=== PATIENT | male | born 1960 | race Caucasian/White ===

== ENCOUNTER 2018-04-01 11:58 | Day surgery (SDC) | payer BC, SELFPAY ==
[2018-04-01] MEDS: Cefazolin 2 GM in 0.9% Normal Saline 100 ML IV (09:15)
--- NOTE | 2018-04-01 12:07 | RAD_ITS ---
STUDY: X-RAY - ABDOMEN/PELVIS REASON FOR EXAM: Male, 57 years old. Kidney stones TECHNIQUE: Two AP supine views of the abdomen and pelvis. COMPARISON: None. FINDINGS: There is an unremarkable bowel gas pattern. There is no demonstrated free abdominal air. 7 mm calculus at the L4 level on the right, may be in the right ureter. 16 mm calculus in the left lower kidney. Pelvic phleboliths. Normal soft tissue structures. Normal visualized osseous structures. RAD/Abdomen Single View IMPRESSION: 7 mm calculus at the L4 level on the right, may be in the right ureter. 16 mm calculus in the left lower kidney. Electronically Signed: Jason Belle MD at 13:32 EST Tel , Service support ,
[2018-04-01 12:30] VITALS: BP 155/76; PULSE 52; RESP 18; TEMP 37.2; O2SAT 97; BMI 31.1
[2018-04-01 16:27] VITALS: BP 155/76; BP 159/92; PULSE 85; RESP 16; TEMP 35.8; O2SAT 100
--- NOTE | 2018-04-01 16:29 | PCM.OPRPT ---
Report of Operation Date of Procedure: 04/01/18 Pre-Operative Diagnosis: Bilateral kidney stones, right ureteral calculi left kidney stone. Post-Operative Diagnosis: Same Surgery/Procedure Performed:: Bilateral extracorporeal shockwave lithotripsy Description of Surgical Findings:: 57-year-old male taken back to the operating room after smooth induction of general anesthesia he was placed supine on the lithotripter table we first located the stone in the mid right ureter and after the stone was put in the F2 focal point of the lithotripter machine we started at rate 60 power then was slowly raised up to 9 kV and then rate was then slowly increased to 90 at the end of 4000 shockwaves a stone did break broken up significantly no stent was left on the right side we then turned attention to the stone in the lower pole the left kidney he had several fragments in the lower pole the left kidney again these were treated with 3000 shockwaves up the power of 7 kV at the end of the treatment cycle the stone was broken up really well decided not to leave a stent on either side patient anesthetic was reversed taken back to PACU in good condition and will see him back in a few weeks with an x-ray. Appeared to be a successful fragmentation of both stones. Type of Anesthesia:: General Drains: none - Admit VTE Documentation VTE Present on Admission: No VTE Mechan Device Prophylaxis: SCD's
[2018-04-01 16:45] VITALS: BP 155/76; BP 168/99; PULSE 62; RESP 16; O2SAT 93
[2018-04-01 17:00] VITALS: BP 155/76; BP 166/90; PULSE 48; RESP 16; O2SAT 94
[2018-04-01 17:15] VITALS: BP 155/76; BP 162/89; PULSE 52; RESP 16; TEMP 35.8; O2SAT 100
[2018-04-01 17:37] VITALS: BP 155/76
== END 2018-04-01 17:53 | disposition home or self-care (01) ==
LOC: SDC 11:59 → AC 12:02
PROVIDERS: Family Provider Family Medicine; PCP Family Medicine; Referring Provider Urology; Visit Provider Urology
PROC: (CPT 50590; principal; 2018-04-01 13:25)
DX: N20.2 Calculus of kidney with calculus of ureter (principal); R31.0 Gross hematuria; H91.90 Unspecified hearing loss, unspecified ear; F17.200 Nicotine dependence, unspecified, uncomplicated
CPT/HCPCS: 50590; 74018; J7120; J2405

== ENCOUNTER → 2018-04-14 09:10 | Outpatient (CLI) | payer BC, SELFPAY ==
[2018-04-01 12:30] VITALS: BMI 31.1
--- NOTE | 2018-04-14 09:21 | RAD_ITS ---
STUDY: X-RAY - ABDOMEN/PELVIS REASON FOR EXAM: Male, 57 years old. History of bilateral kidney stones, surgery last week TECHNIQUE: Two AP supine views of the abdomen and pelvis. COMPARISON: 04/01/2018 FINDINGS: 6 mm calcification projects over the right psoas muscle at the L4 level, similar in position (although less angular) as compared to the prior study. There is an unremarkable bowel gas pattern. There is no demonstrated free abdominal air. A 16 mm left renal calculus evident on the prior study is not clearly identified although there is significant overlying bowel contents. The visualized liver, spleen and kidneys are grossly normal in size and morphology. There are calcified phleboliths in the pelvis. There are diffuse degenerative changes of the visualized lumbar spine. RAD/Abdomen Single View IMPRESSION: 1. Similar suspected right mid ureter calculus (versus vascular phlebolith). 2. Nonvisualization of left renal calculus seen previously but may be obscured by overlying bowel contents. Electronically Signed: Olman River MD at 19:06 EST , Service support ,
== END ==
PROVIDERS: Family Provider Family Medicine; PCP Family Medicine; Referring Provider Urology; Visit Provider Urology
DX: N20.0 Calculus of kidney (principal)
CPT/HCPCS: 74018

== ENCOUNTER → 2018-04-30 07:52 | Outpatient (CLI) | payer BC, SELFPAY ==
[2018-04-01 12:30] VITALS: BMI 31.1
--- NOTE | 2018-04-30 08:10 | RAD_ITS ---
STUDY: X-RAY - ABDOMEN/PELVIS REASON FOR EXAM: Male, 57 years old. Follow-up stones. TECHNIQUE: Two AP supine views of the abdomen and pelvis. COMPARISON: Abdomen, April 14, 2018. FINDINGS: Normal visualized lung bases. There is an unremarkable bowel gas pattern. There is no demonstrated free abdominal air. The visualized liver, spleen and kidneys are grossly normal in size and morphology. No visualized renal calculi. A small rounded calcification overlying the right psoas muscle at the level of L5 is no longer present. There is a 3 small calcifications are aligned in the right pelvis suggesting distal ureteral calculi. These measure 2.5, 2.0 and 1.5 mm in diameter respectively. There is also a vague density in the left pelvis measuring 3 mm in diameter which is not present on the prior study and may represent a distal ureteral calculus. Normal soft tissue structures. RAD/Abdomen Single View IMPRESSION: 1. Linear arrangement of small calcifications in the right pelvis not present on the prior study. Question distal ureteral calculi. 2. A single density in the left pelvis. Question distal ureteral calculus. Electronically Signed: Dinesh Collins DO at 16:56 EST Tel [phone], Service support ,
== END ==
PROVIDERS: Family Provider Family Medicine; PCP Family Medicine; Referring Provider Urology; Visit Provider Urology
DX: N20.0 Calculus of kidney (principal)
CPT/HCPCS: 74018

== ENCOUNTER → 2018-06-01 08:34 | Outpatient (CLI) | payer BC, SELFPAY ==
--- NOTE | 2018-06-01 08:40 | RAD_ITS ---
STUDY: X-RAY - ABDOMEN/PELVIS REASON FOR EXAM: Male, 57 years old. Bilateral kidney stones. TECHNIQUE: Two AP supine views of the abdomen and pelvis. COMPARISON: 04/30/2018. 04/14/2018. FINDINGS: The lung bases are not demonstrated. There is an unremarkable bowel gas pattern. There is no demonstrated free abdominal air. The visualized liver, spleen and kidneys are grossly normal in size and morphology. There are calcified phleboliths in the pelvis. On the last previous exam, an obliquely oriented linear radiolucency of small calcifications is seen overlying the right side of the pelvis, probably representing distal right ureteral calculi. These are not visualized on the current examination. There are multilevel degenerative changes of the visualized lumbar spine. 2 small metallic densities overlying the lateral right midabdomen which are not seen on previous exams. These may represent foreign bodies or may be due to an overlying artifact. RAD/Abdomen Single View IMPRESSION: Nonspecific bowel gas pattern. No urinary calculi are currently identified. Electronically Signed: Wilver Bucio MD at 2:55 EST , Service support ,
== END ==
PROVIDERS: Family Provider Family Medicine; PCP Family Medicine; Referring Provider Urology; Visit Provider Urology
DX: N20.0 Calculus of kidney (principal)
CPT/HCPCS: 74018

== ENCOUNTER 2018-09-02 11:26 | Day surgery (SDC) | payer BC, SELFPAY ==
[2018-09-02 11:45] VITALS: BP 139/81; PULSE 87; RESP 22; TEMP 36.8; O2SAT 91; BMI 30.8
[2018-09-02] MEDS: Cefazolin 2 GM in 0.9% Normal Saline 100 ML IV (14:20)
--- NOTE | 2018-09-02 14:54 | DCINST_ITS ---
Discharge Diet: Light diet - advance as tolerated Discharge Activity: Return to Normal Activity Call your doctor if your incision/area has: Continuous Slow Oozing, Sudden Increased Bleeding, Increased Pain/ Swelling, Increased Redness, Foul Smelling Discharge, Swelling at the incision site Instructions: Treating Kidney Stones: Ureteroscopic Stone Removal, Ureteral Stents Allergies/Adverse Reactions: Allergies No Known Allergies Allergy (Verified 08/31/18 16:05) Medications to take at Discharge Acetaminophen [Tylenol Extra Strength] 500 - 1,000 mg PO Q6H PRN PRN 03/31/18 Ondansetron HCl [Zofran] 4 mg PO PRN PRN 08/31/18 Oxycodone HCl/Acetaminophen [Percocet 5/325] 1 tablet PO Q6H PRN PRN 08/31/18 Tamsulosin HCl [Flomax] 0.4 mg PO DAILY 08/31/18 Primary Care Physician: Robin Paulino DO [Primary Care Provider] - Test Results: Test results from this visit will be discussed in further detail at your follow- up appointment, if applicable. Please Follow Up With: Florian Guzman MD When: please call to make an appointment.
--- NOTE | 2018-09-02 14:58 | PCM.OPRPT ---
Report of Operation Date of Procedure: 09/02/18 Pre-Operative Diagnosis: Right ureteral calculi causing obstruction and hydronephrosis Post-Operative Diagnosis: The same Surgery/Procedure Performed:: Cystoscopy, balloon dilation of the right ureter, right retrograde pyelogram and representation of fluoroscopic images, right ureteroscopy laser lithotripsy of stone and right stent placement Description of Surgical Findings:: 58-year-old male presented to the hospital with severe renal colic he was then seen in the office for follow-up of the stone in the distal right ureter causing obstruction were to proceed with ureteroscopy laser lithotripsy of the stone. Patient was taken back to the operating room at the smooth induction of general anesthesia he was placed in dorsolithotomy position went of the bladder with a 21 [place] rigid cystourethroscope cannulated the right ureteral orifice with a Glidewire advanced the balloon dilator up to the stone balloon dilated the stone with a 10 cm, 12 [place] balloon dilator, once the ureter was balloon dilated then I went in with a flexible ureteroscope and encountered the stone in the distal ureter was a 6 mm very hard stone used a 270 ?m laser fiber perform laser lithotripsy and the stone this energy settings with mostly 1 J and 6 Hz. After the stone was lasered a little tiny pieces that went up to the kidney inspected the upper kidney medical kidney lower kidney no other stone fragments were seen performed a retrograde pyelogram there was a hydronephrosis of the kidney this is x-rays were taken I then advanced a wire, after inspecting the x-ray and the retrograde pyelogram then I put a stent in over a wire on the right side left the string of the stent, drain the bladder patient's anesthetic was reversed and will see him next week for stent removal. Type of Anesthesia:: General Drains: stent - Admit VTE Documentation VTE Present on Admission: No VTE Mechan Device Prophylaxis: SCD's
[2018-09-02 15:01] VITALS: BP 136/82; BP 139/81; PULSE 78; RESP 16; TEMP 36.3; O2SAT 95
[2018-09-02 15:15] VITALS: BP 139/81; BP 143/85; PULSE 72; RESP 18; O2SAT 97
[2018-09-02 15:25] VITALS: BP 139/81; BP 139/99; PULSE 67; RESP 18; TEMP 36.4; O2SAT 97
[2018-09-02] MEDS: Ketorolac 15 MG/ML Vial IV (15:40)
[2018-09-02 16:01] VITALS: BP 139/81
== END 2018-09-02 16:08 | disposition home or self-care (01) ==
LOC: SDC 11:28 → AC 11:30
PROVIDERS: Family Provider Family Medicine; PCP Family Medicine; Referring Provider Urology; Visit Provider Urology
PROC: 0TJ98ZZ Inspection of Ureter, Via Natural or Artificial Opening Endoscopic (ICD-10-PCS; CPT 52352; principal; 2018-09-02 13:05)
DX: N13.2 Hydronephrosis with renal and ureteral calculous obstruction (principal); H91.90 Unspecified hearing loss, unspecified ear; F17.200 Nicotine dependence, unspecified, uncomplicated; Z79.899 Other long term (current) drug therapy; Z87.442 Personal history of urinary calculi
CPT/HCPCS: 52356; 76000; J7120; C1769; C2617; J2405

== ENCOUNTER → 2018-09-07 15:08 | Outpatient (CLI) | payer BC, SELFPAY ==
[2018-09-02 11:45] VITALS: BMI 30.8
[2018-09-07 18:25] LABS: Anion Gap 6 (5-15); BUN 15 mg/dL (7-18); Calcium,Total 8.2 mg/dL (8.5-10.1); Chloride 105 mmol/L (98-107); EST Glomerular Filtration Rate 81 mL/min (>60); Est Glom Filt Rate - Afr Amer 98 mL/min (>60); Glucose 100 mg/dL (74-106); Potassium 3.8 mmol/L (3.5-5.1); Sodium Level 139 mmol/L (136-145)
[2018-09-07 18:34] LABS: PTHIN 97.8 pg/mL (18.4-80.1)
== END ==
PROVIDERS: Family Provider Family Medicine; PCP Family Medicine; Referring Provider Nurse Practitioner Adult Health; Visit Provider Nurse Practitioner Adult Health
DX: N20.0 Calculus of kidney (principal)
CPT/HCPCS: 36415; 80048; 83970

== ENCOUNTER → 2020-01-19 09:05 | Outpatient (CLI) | payer OTHER, SELFPAY ==
[2020-01-19 10:17] LABS: Creatinine, Serum 1.03 mg/dL (0.70-1.30); EST Glomerular Filtration Rate 78 mL/min (>60); Est Glom Filt Rate - Afr Amer 95 mL/min (>60)
== END ==
PROVIDERS: Referring Provider Physician Assistant; Visit Provider Physician Assistant
DX: M54.6 Pain in thoracic spine (principal)
CPT/HCPCS: 36415; 82565

== ENCOUNTER → 2025-01-28 | Outpatient (CLI) | payer OTHER, SELFPAY ==
--- NOTE | 2025-01-28 | LES_PTH ---
PATIENT: DUANE AMIN LOC: [facility] U#:[id number] AGE/SX: 64/M ROOM: RE01/28/[address]: Dr. Everette Fregoso MD : 1960 BED: DIS: 01/28/2025 SPEC #: [id number] RECD: 01/28/25 17:31 STATUS: ZHEN APT #: [id number] SHERRY: 01/28/25 00:[address]: Everette Fregoso DEPT: SURGICAL PATHOLOGY RECD BY: Aga Parks ENTERED: 01/31/25 09:29 SP TYPE: Lesion OTHR DR: No Primary Care Phys Tissues: A - Skin of eyelid, NOS Procedures: Surgery Specimen Level IV HEADER OPERATION: Lesion excision right upper lid PRE-OP DIAGNOSIS: Right upper lid lesion TISSUE SUBMITTED: A- Right upper lid lesion MICROSCOPIC DIAGNOSIS A. Skin, right upper eyelid, lesion, excision: Basal cell carcinoma focally involving an inked surgical margin. MICROSCOPIC DESCRIPTION Slides are reviewed. GROSS DESCRIPTION A. Received in formalin labeled with the patient's name and date of . Designated as right upper lid is a 0.4 x 0.3 x 0.2 cm spencer portion of hairbearing skin devoid of orientation. The resection margin is inked black, the specimen is bisected (along the long axis) and entirely submitted in 1 cassette. [place] 01/31/2025 CPT:23084
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
== END | disposition home or self-care (01) ==
PROVIDERS: Referring Provider Ophthalmology; Visit Provider Ophthalmology
DX: C44.1121 Basal cell carcinoma of skin of right upper eyelid, including canthus (principal)
CPT/HCPCS: 88305